=== PATIENT | female | born 1930 | race Caucasian/White ===

== ENCOUNTER 2018-01-02 19:41 | Inpatient (IN) | payer OTHER ==
[~2018-01-02] VITALS: Ht 157.5 cm; Wt 71.7 kg
[2018-01-02 19:52] VITALS: BP_SYST 163
--- NOTE | 2018-01-02 20:24 | NUR ---
Patient to ER bed 6 to gown for evaluation. Side rails up.
--- NOTE | 2018-01-02 20:30 | NUR ---
Pt AAOx4 presents to ED c/o 02/08 R hip pain s/p trip and fall today. Pt normally can ambulate, but has not been able to walk. Pain exacerbated upon movement. Shortening to R leg noted. No other injuries/complaints per pt/noted. Will continue to monitor.
--- NOTE | 2018-01-02 20:59 | NUR ---
ER Dr. Harding at bedside examining patient.
[2018-01-02] MEDS ORDERED: ONDANSETRON HCL 4 MG/2 ML VIAL IVP ONE (21:15)
[2018-01-02] MEDS ORDERED: MORPHINE 4 MG/ML INJ. SYRINGE IVP ONE ×2 (21:15→23:00)
--- NOTE | 2018-01-02 21:30 | NUR ---
Radiology at bedside for CXR. Pt tolerated well
[2018-01-02 21:46] LABS: BASOPHILS # (AUTO) 0.1 K/uL (0.0-0.2); EOSINOPHILS # (AUTO) 0.2 K/uL (0.0-0.4); MONOCYTES # (AUTO) 0.7 K/uL (0.0-1.0); RED BLOOD CELL COUNT(AUTO) 4.28 MIL/uL (4.2-6.2)
[2018-01-02 21:52] LABS: BASOPHILS % (AUTO) 0.6 % (0.0-2.0); EOSINOPHILS % (AUTO) 1.3 % (0.0-4.0); HEMATOCRIT 37.6 % (36-48); HEMOGLOBIN 12.6 g/dL (12.0-16.0); MEAN CORPUSCULAR HEMOGLOBIN 30 pg (27-31); MEAN CORPUSCULAR HGB CONC 34 % (32-36); MEAN CORPUSCULAR VOLUME 88 fL (79.0-98.0); MONOCYTES % (AUTO) 5.8 % (1.7-9.3); NEUTROPHILS # (AUTO) 8.8 K/uL (1.8-7.7); NEUTROPHILS % (AUTO) 75.3 % (40.0-70.0); PLATELET COUNT (AUTO) 258 K/uL (130-430); RED CELL DISTRIBUTION WIDTH 13.8 % (9.0-15.0); WHITE BLOOD COUNT (AUTO) 11.8 K/uL (4.8-10.8)
[2018-01-02 22:12] LABS: ANION GAP 6 (5-15); CALCIUM 9.8 mg/dL (8.4-11.0); CHLORIDE 107 mmol/L (98-107); CREATININE 1.28 mg/dL (0.55-1.30); GLUCOSE 109 mg/dL (70-99); POTASSIUM 4.5 mmol/L (3.5-5.1); SODIUM SERUM 139 mmol/L (136-145); UREA NITROGEN, BLOOD 30 mg/dL (8-21)
--- NOTE | 2018-01-02 22:13 | NUR ---
# 16 FR Saha catheter with use of sterile technique. Immediate return of 60 cc yellow urine noted. Bedside drainage bag placed below level of bladder. Urine sample collected and sent to lab. Pt tolerated procedure well.
[2018-01-02 22:15] LABS: PROTHROMBIN TIME 10.3 SECS (9.5-12.5)
[2018-01-02 22:17] LABS: ALANINE AMINOTRANSFERASE 25 U/L (12-78); ALBUMIN 3.1 g/dL (3.4-4.8); ASPARTATE AMINOTRANSFERASE 20 U/L (10-37); TOTAL BILIRUBIN 0.4 mg/dL (0.0-1.0)
[2018-01-02 22:18] LABS: BILIRUBIN,URINE NEGATIVE (NEGATIVE); CLARITY/URINE SL HAZY (CLEAR); COLOR,URINE YELLOW (YELLOW); GLUCOSE,URINE NEGATIVE (NEGATIVE); KETONES,URINE NEGATIVE (NEGATIVE); LEUKOCYTE ESTERASE ,URINE NEGATIVE (NEGATIVE); NITRITE, URINE NEGATIVE (NEGATIVE); PROTEIN URINE TRACE (NEGATIVE); UROBILINOGEN,URINE 0.2 (0.2-1.0)
[2018-01-02 22:21] LABS: BLOOD, URINE TRACE (NEGATIVE)
--- NOTE | 2018-01-02 22:37 | NUR ---
Pt states she is full code
[2018-01-02 22:38] LABS: BACTERIA,URINE MANY /HPF (None Seen); WBC,URINE 0-3 /HPF (0-3)
[2018-01-02] MEDS ORDERED: MORPHINE 4 MG/ML INJ. SYRINGE ONE (22:58)
--- NOTE | 2018-01-02 23:00 | NUR ---
Pt reports 8/10 pain to R hip. Verbal order of 4mg Morphine IVP per Dr. Harding.
--- NOTE | 2018-01-02 23:10 | NUR ---
Pt reports pain at IV site, swelling to IV site noted. IV DCed. Attempted IV insertion x2, unable to advance catheter. Dr. Harding notified. Order changed to Morphine IM.
[2018-01-02] MEDS ORDERED: MORPHINE 4 MG/ML INJ. SYRINGE IM ONE (23:30)
--- NOTE | 2018-01-02 23:30 | NUR ---
# 24 gauge angiocath placed to R hand. Use of asceptic technique. Opsite placed over site. Blood return noted. Flushed with 10 cc of normal saline. No evidence of infiltration noted. Patient tolerated well.
--- NOTE | 2018-01-02 23:32 | NUR ---
Morphine 4mg IVP administered. Morphine 4mg IM canceled, morphine wasted. ALYSE sheets.
--- NOTE | 2018-01-02 23:51 | NUR ---
ADMIT NOTE Received pt from ER to the floor with a diagnosis of RIGHT HIP FRACTURE. Admission process initiated. patient oriented to pain management, safety and call light-teach back done.
[2018-01-02 23:55] VITALS: BP_SYST 139
[2018-01-02] MEDS ORDERED: LEVO100T9 PO (23:56)
[2018-01-02] MEDS ORDERED: GLUXR500 PO (23:56)
[2018-01-02] MEDS ORDERED: LIP40 PO (23:56)
--- NOTE | 2018-01-02 23:58 | NUR ---
Patient will be admitted to care of [facility]. Admitted to Medsurg unit. Will go to room 124A. Belongings list completed. Summary report printed. Report will be given at bedside. Addendum: 01/03/18 at 0024 by SDEDEJ Patient will be admitted to care [facility]. Admitted to Medsurg unit. Will go to room 135. Summary report printed. Report will be given at bedside.
[2018-01-03] VITALS: BP_SYST 164
--- NOTE | 2018-01-03 00:28 | NUR ---
INITIAL NOTE Patient transfer to room 121 A. No acute distress. AAO x 4. Stated that right hip pain 4/10. Morphine helped to lower the pain level. Skin warm and dry to touch. SL intact to left hand, no redness, no swelling, patent. Family at bed side. Discussed the safety issue, use call light when need help, and plan of care, verbally understanding. F/C intact, drain gravity with yellow urine. Family will bring belonging home. Safety measure maintained. Bed locked in low position, side rails up, bed alarm on. Call light within reached. Will continue to monitor.
[2018-01-03] MEDS ORDERED: ONDANSETRON HCL 4 MG/2 ML VIAL IVP PRN ×2 (00:45→15:15)
[2018-01-03] MEDS ORDERED: INSULIN REGULAR, HUMAN 100 UNITS/ML, 10 ML VIAL (novoLIN R) SUBCUT PRN ×2 (00:45→10:15)
[2018-01-03] MEDS ORDERED: ACETAMINOPHEN 325 MG TABLET PO PRN (00:45)
[2018-01-03] MEDS ORDERED: ALBUTEROL SULFATE 0.083% 2.5 MG/3 ML VIAL.NEB INH PRN (00:45)
[2018-01-03] MEDS ORDERED: HYDROcodone/ACETAMIN 5-325 MG TAB (NORCO/ VICODIN) PO PRN ×2 (00:45→15:15)
[2018-01-03] MEDS: NACL 0.9% 1,000 ML IV SCH ×2 (01:05→18:46)
[2018-01-03 01:19] VITALS: BP_SYST 163
--- NOTE | 2018-01-03 01:26 | NUR ---
start new iv site to right ac-good blood return, done aseptically. pt tolerate well. Addendum: 01/03/18 at 0127 by Jose Barrow RN gauge 20 angiocath was use.
--- NOTE | 2018-01-03 02:19 | NUR ---
CONSULT Cardio consult for Dr. Pat was called. [phone] RE pre op clearance SW Oil Boiler 22 (Arline)
--- NOTE | 2018-01-03 02:47 | NUR ---
ROUND Patient resting on the bed with eyes closed. No acute distress. IV intact, IVF infusing well. Safety measure maintained. Bed in low position, side rails up, bed alarm on. Call light within reached. Continue to monitor.
--- NOTE | 2018-01-03 03:58 | NUR ---
DR. CAVAZOS IN THE UNIT AND UPDATED THE PATIENT MEDICAL CONDITION.
--- NOTE | 2018-01-03 04:25 | NUR ---
ORTHO CONSULT Consult for Dr. Leiva was called; Dr. Fonseca is honeycomb blanket maker [phone] RE Hip fracture LEEANNE Ibanez
[2018-01-03] MEDS: MORPHINE 2 MG/ML INJ. SYRINGE IVP PRN (05:08)
--- NOTE | 2018-01-03 05:09 | NUR ---
MORPHINE GIVEN Patient c/o right hip pain 12/09, Morphine 2mg IVP given as ordered. No acute distress. IV intact, IVF infusing well. Safety measure maintained. Bed locked in low position, side rails up, bed alarm on. Call light within reached. Continue to monitor.
[2018-01-03 05:12] VITALS: BP_SYST 151
[2018-01-03 06:19] LABS: BASOPHILS # (AUTO) 0.1 K/uL (0.0-0.2); BASOPHILS % (AUTO) 0.5 % (0.0-2.0); EOSINOPHILS # (AUTO) 0.1 K/uL (0.0-0.4); EOSINOPHILS % (AUTO) 0.5 % (0.0-4.0); HEMOGLOBIN 12.8 g/dL (12.0-16.0); LYMPHOCYTES # (AUTO) 2.5 K/uL (1.0-5.5); LYMPHOCYTES % (AUTO) 19.1 % (20.5-51.5); MEAN CORPUSCULAR HEMOGLOBIN 30 pg (27-31); MEAN CORPUSCULAR HGB CONC 34 % (32-36); MONOCYTES # (AUTO) 0.9 K/uL (0.0-1.0); MONOCYTES % (AUTO) 7.3 % (1.7-9.3); NEUTROPHILS # (AUTO) 9.4 K/uL (1.8-7.7); NEUTROPHILS % (AUTO) 72.6 % (40.0-70.0); PLATELET COUNT (AUTO) 209 K/uL (130-430); RED BLOOD CELL COUNT(AUTO) 4.22 MIL/uL (4.2-6.2); WHITE BLOOD COUNT (AUTO) 12.9 K/uL (4.8-10.8)
--- NOTE | 2018-01-03 06:50 | NUR ---
CLOSING NOTE Patient resting on the bed. No acute distress. Pain tolerable at this time. Per patient if not moving the pain is okay for her. Skin warm and dry to touch. SL intact to left hand, no redness, no swelling, patent. IV intact to RAC, no redness, no swelling, no drainage. ON NS at 55ml/hr, infusing well. F/C intact, drain gravity with yellow urine. All needs met. Hourly rounding during shift. Safety measure maintained. Bed locked in low position, side rails up, bed alarm on. Call light within reached. Will endorse to morning shift nurse.
--- NOTE | 2018-01-03 06:52 | NUR ---
PATIENT KEPT NPO SINCE ADMISSION
[2018-01-03 06:54] LABS: ALANINE AMINOTRANSFERASE 24 U/L (12-78); ALBUMIN 2.8 g/dL (3.4-4.8); ANION GAP 6 (5-15); ASPARTATE AMINOTRANSFERASE 19 U/L (10-37); CALCIUM 9.7 mg/dL (8.4-11.0); CHLORIDE 106 mmol/L (98-107); CREATININE 1.18 mg/dL (0.55-1.30); GLUCOSE 144 mg/dL (70-99); POTASSIUM 4.5 mmol/L (3.5-5.1); SODIUM SERUM 138 mmol/L (136-145); TOTAL BILIRUBIN 0.5 mg/dL (0.0-1.0); UREA NITROGEN, BLOOD 27 mg/dL (8-21)
[2018-01-03 07:01] LABS: MEAN CORPUSCULAR VOLUME 90 fL (79.0-98.0)
--- NOTE | 2018-01-03 07:43 | NUR ---
RECEIVED THE CALL FROM DR. FARFAN YANNI Per Dr. Farfan ( covering for Dr. Leiva) to keep patient NPO, will do surgery today after pre op clearance. Dr. Pat already called and waited to call back. Endorse to morning shift nurse Kaley.
--- NOTE | 2018-01-03 07:50 | NUR ---
ENDORSE TO MORNING SHIFT NURSE TO CALL DR. FARFAN AFTER PER OP AUTUMN BY DR. WEST.
--- NOTE | 2018-01-03 07:55 | NUR ---
am rounds: patient lying on the bed,awake,alert and oriented x4. daughter at the bedside. bedside report given by night nurse aurora. neuro lopez with in normal limit. call light with in reach. bed locked at lowest position. continue to monitor.needs attended to.
--- NOTE | 2018-01-03 08:20 | NUR ---
bucks traction: bucks traction applied to right lower leg with sand bag wt 5lbs and bilateral plexi pulse on both feet as ordered.
[2018-01-03 08:44] VITALS: BP_SYST 140
[2018-01-03] MEDS: LEVOTHYROXINE SODIUM 0.1 MG TABLET PO SCH (09:00)
[2018-01-03] MEDS: ATORVASTATIN 20 MG TABLET PO SCH (09:00)
--- NOTE | 2018-01-03 10:05 | NUR ---
Dr. Bi butt.
--- NOTE | 2018-01-03 10:10 | NUR ---
Nutrition Update Mau Scale 16 noted. Pt admitted for R hip fracture. Diet: NPO + cardiac (2 active, separate diet orders) BMI: 29.1 kg/m2 RD to follow per nutrition care standards.
[2018-01-03] MEDS ORDERED: DEXTROSE 50% JECT 50 ML DISP.SYRIN IVP PRN (10:15)
--- NOTE | 2018-01-03 10:30 | NUR ---
cardio rounds: patient seen by dr hernandez ,stated patient cleared medically,moderate risk,otherwise okay for surgery.
--- NOTE | 2018-01-03 12:41 | NUR ---
BLOOD SUGAR: BLOOD SUGAR TAKEN,NO INSULIN COVERAGE PER SLIDING SCALE.
--- NOTE | 2018-01-03 12:43 | NUR ---
OR: TO OR PER RACHEL IN STABLE CONDITION. .PREOP CHECK LIST DONE. CHG BATH RENDERED.MU[place] PASS DONE. FAMILY WILL WAIT AT THE WAITING ROOM.
[2018-01-03 12:56] VITALS: BP_SYST 136
[2018-01-03] MEDS ORDERED: POLYMYXIN 500,000/BACIT.10,000 UNITS in NS IRR 1 L IR ONE (13:05)
--- NOTE | 2018-01-03 14:30 | NUR ---
rn rounds: patient still in or.
[2018-01-03] MEDS ORDERED: LR 1,000 ML IV SCH (14:31)
[2018-01-03] MEDS ORDERED: MORPHINE 4 MG/ML INJ. SYRINGE IVP PRN ×3 (14:45)
[2018-01-03] MEDS ORDERED: METOCLOPRAMIDE HCL 10 MG/2 ML VIAL IVP PRN (14:45)
[2018-01-03] MEDS ORDERED: HYDROcodone/ACETAMIN 10-325 MG TAB PO PRN (15:15)
[2018-01-03] MEDS ORDERED: DIPHENHYDRAMINE HCL 25 MG CAPSULE PO PRN (15:15)
[2018-01-03] MEDS ORDERED: ACETAMINOPHEN 500 MG TABLET PO PRN (15:15)
[2018-01-03] MEDS ORDERED: MILK OF MAGNESIA 30 ML UDC PO PRN (15:15)
[2018-01-03] MEDS ORDERED: DIPHENHYDRAMINE INJ 50 MG/ML VIAL IVP PRN (15:15)
[2018-01-03] MEDS ORDERED: MORPHINE 4 MG/ML INJ. SYRINGE ONE (16:03)
--- NOTE | 2018-01-03 16:06 | NUR ---
rn rounds: patient still in or.
--- NOTE | 2018-01-03 16:40 | NUR ---
post op notes: patient came from pacu,s/p open reduction,internal fixation right hip with trochanteric nailing.right hip surgical dressing clean and dry,with ice packs underneath.report received from mathew pacu nurse.post op vital signs taken,afebrile and stable. patient awake,alert and oriented x3.daughters at the bedside. white draining to yellow urine. denies any pain this time. able to wiggle right toes and health teachings rendered and patient understands it well.call light with in reach. bed locked at lowest position.
[2018-01-03] MEDS: KETOROLAC TROMETHAMINE 15 MG VIAL IVP SCH ×2 (17:39→23:26)
--- NOTE | 2018-01-03 17:43 | NUR ---
BLOOD SUGAR: BLOOD ZTJOR=579VE/DL,NO INSULIN COVERAGE PER SLIDING SCALE.
--- NOTE | 2018-01-03 18:03 | NUR ---
iv notes: patient's daughter wants iv lr to finished first before changing new ivf,blood sugar is okay ,once tolerated po diet, decreased iv rate to kvo as ordered.
--- NOTE | 2018-01-03 18:05 | NUR ---
incentive spirometry: patient doing incentive spirometry,daughter coaching,patient rendered up to 1500ml evry hour while awake 8-10x ,health teaching given and understands it.
--- NOTE | 2018-01-03 18:30 | NUR ---
end of shift: patient with visitor's at the bedside. call light with in reach. bed locked at lowest position. right hip dressing intact,ice pack on x 30mins and off 30mins as ordered. white draining to yellow urine. no distress. neuro lopez with in normal limit.
--- NOTE | 2018-01-03 19:50 | NUR ---
Opening not Opening note Pt AAOx4. VSS. O2 sat 92% on room air. O2 2L applied via NC PRN. Pt states pain is 2/10 tolerable at this time. R. hip dressing C/D/I. Neurovascular check intact. Pt able to move toes, warm to touch, good cap refill. Shaw plexi pulse in place. R. leg floated on pillow. Pt encouraged to do deep breathing exercises/use of I.S. 10x while awake. Pt verbalized understanding. IVF infusing as ordered. Pt family/friends at bedside. Call light within reach. Will continue to monitor.
[2018-01-03 20:00] VITALS: BP_SYST 124
--- NOTE | 2018-01-03 20:34 | NUR ---
PAGE CALLED FOR DR. CAVAZOS. SPOKE TO SUZY, DIALED [phone].
--- NOTE | 2018-01-03 20:35 | NUR ---
MD communication Pt c/o bloating/gas. Paged and spoke with Dr. Dover and rec'd order for Mylicon 1 tab. Will carry out order.
[2018-01-03] MEDS ORDERED: SIMETHICONE 80 MG TAB.CHEW PO PRN (20:45)
[2018-01-03] MEDS: SENNOSIDES 8.6 MG TABLET PO SCH (21:00)
[2018-01-03] MEDS: D5/0.45 NS 1,000 ML IV SCH (21:11)
--- NOTE | 2018-01-03 21:15 | NUR ---
Rounds Pt awake. Med passed. Pt refused Sen[place]ot at this time. Pt denies pain at this time. IVF infusing R. AC 20G clear, patent. R. hip dressing C/D/I. Ice packs in place. No c/o nausea. Shaw plexi pulses in place. Call light within reach. Will continue to monitor.
--- NOTE | 2018-01-03 23:29 | NUR ---
BS check/Rounds Pt asleep, easily arousable. BS checked 123, no insulin indicated per sliding scale protocol. Pt states pain is ok at this time 06/11. Ice packs in place. IV fluids infusing as ordered. Saha cath to gravity. Neuro check intact. Call light within reach. Will continue to monitor.
[2018-01-04] MEDS: D5/0.45 NS 1,000 ML IV SCH
[2018-01-04 00:08] VITALS: BP_SYST 109
--- NOTE | 2018-01-04 01:20 | NUR ---
Rounds Pt asleep. No s/s distress noted. O2 sat 99% on O2 2L via NC. IV fluids infusing as ordered. Call light within reach. Will continue to monitor.
--- NOTE | 2018-01-04 04:15 | NUR ---
Rounds Pt asleep, easily arousable. VSS, afebrile. Pt denies any pain or R. hip dressing C/D/I. IV fluids infusing as ordered. Neuro checks intact, pt able to wiggle both goes and ankles, warm to touch. Shaw plexipulses in place. Call light within reach. Will continue to monitor.
[2018-01-04 04:19] VITALS: BP_SYST 105
[2018-01-04] MEDS: KETOROLAC TROMETHAMINE 15 MG VIAL IVP SCH (06:36)
--- NOTE | 2018-01-04 06:44 | NUR ---
Closing notes Pt alert, awake. No s/s distress noted. BS checked 127. IVF infusing on R. AC 20G no infiltration noted. Neuro check intact. Shaw plexipulses on. R. hip dressing C/D/I. Pt states pain is ok at this time. Saha cath secured to gravity. Call light within reach. To endorse to am nurse.
[2018-01-04 06:46] LABS: ANION GAP 3 (5-15); CALCIUM 8.4 mg/dL (8.4-11.0); CHLORIDE 104 mmol/L (98-107); CREATININE 1.39 mg/dL (0.55-1.30); GLUCOSE 134 mg/dL (70-99); POTASSIUM 4.5 mmol/L (3.5-5.1); SODIUM SERUM 134 mmol/L (136-145); UREA NITROGEN, BLOOD 26 mg/dL (8-21)
[2018-01-04 06:53] LABS: BASOPHILS % (AUTO) 0.4 % (0.0-2.0); EOSINOPHILS # (AUTO) 0.3 K/uL (0.0-0.4); EOSINOPHILS % (AUTO) 3.3 % (0.0-4.0); HEMATOCRIT 28.1 % (36-48); HEMOGLOBIN 9.3 g/dL (12.0-16.0); LYMPHOCYTES # (AUTO) 1.6 K/uL (1.0-5.5); LYMPHOCYTES % (AUTO) 17.3 % (20.5-51.5); MEAN CORPUSCULAR HEMOGLOBIN 29 pg (27-31); MEAN CORPUSCULAR HGB CONC 33 % (32-36); MEAN CORPUSCULAR VOLUME 88 fL (79.0-98.0); MONOCYTES # (AUTO) 0.7 K/uL (0.0-1.0); MONOCYTES % (AUTO) 7.1 % (1.7-9.3); NEUTROPHILS # (AUTO) 6.8 K/uL (1.8-7.7); NEUTROPHILS % (AUTO) 71.9 % (40.0-70.0); PLATELET COUNT (AUTO) 167 K/uL (130-430); RED BLOOD CELL COUNT(AUTO) 3.19 MIL/uL (4.2-6.2); WHITE BLOOD COUNT (AUTO) 9.4 K/uL (4.8-10.8)
--- NOTE | 2018-01-04 07:25 | NUR ---
Opening Note patient resting in bed, awake and alert, no complaints of pain, breathing unlabored on room air, positioned with HOB elevated, IV site on KVO mode, safety precautions in place, educated patient on use of call light for assistance, verbalized understanding, bedside table and call light left within reach, will be back to check on patient
[2018-01-04] MEDS: PANTOPRAZOLE SODIUM 40 MG TAB PO SCH (08:52)
[2018-01-04] MEDS: ATORVASTATIN 20 MG TABLET PO SCH (08:52)
[2018-01-04] MEDS: ENOXAPARIN SODIUM 40 MG/0.4 ML SYRINGE SUBCUT SCH (08:53)
[2018-01-04] MEDS: LEVOTHYROXINE SODIUM 0.1 MG TABLET PO SCH (08:53)
[2018-01-04] MEDS: ASCORBIC ACID 500 MG TABLET PO SCH ×2 (08:53→20:33)
[2018-01-04] MEDS: MULTIVITAMINS TAB 1 TABLET PO SCH (08:53)
[2018-01-04] MEDS: FERROUS SULFATE 140 MG TABLET.ER PO SCH (08:54)
[2018-01-04 08:59] VITALS: BP_SYST 125
--- NOTE | 2018-01-04 09:02 | NUR ---
Medication Administration patient resting in bed, awake and alert, educated her regarding medications, verbalized understanding, no complaints of pain at this time, neurovascular checks within normal limits, dressing clean dry and in tact, safety precautions in place, bedside table and call light left within reach, room close to station, will be back to check on patient
--- NOTE | 2018-01-04 09:04 | NUR ---
Incentive Spirometer patient was able to demonstrate proper use of IS, educated her on frequency of use, verbalized understanding, left on bedside table within reach
--- NOTE | 2018-01-04 09:15 | NUR ---
dcp. met with patient yesterday. dtr at bedside homer linton. provided snf's [facility] and [facility]. she will check snf.s dc to snf for rehab. patient has fww with a seat. pam luciano rn/cm
[2018-01-04] MEDS: MORPHINE 2 MG/ML INJ. SYRINGE IVP PRN (09:38)
--- NOTE | 2018-01-04 10:17 | NUR ---
Dr. Peacock Rounds/Physical Therapy physical therapy at bedside at this time, medicated patient prior to physical therapy, MD also making rounds, will follow through with MD orders
--- NOTE | 2018-01-04 11:30 | NUR ---
Spoke with Physical Therapist stated that patient is not ready to ambulate with 2 RN and to wait until next PT session to evaluate patient's weight bearing
--- NOTE | 2018-01-04 12:03 | NUR ---
Blood Sugar assessed, no insulin coverage needed per sliding scale, lunch tray at bedside, no complaints of pain at this time, breathing unlabored on room air, IV site saline locked, educated patient on use of call light for assistance, verbalized understanding, safety precautions in place, bedside table and call light left within reach, room close to station, will be back to check on patient
[2018-01-04 12:08] VITALS: BP_SYST 126
--- NOTE | 2018-01-04 14:13 | NUR ---
Dietitian Recommendations * Recommend CCHO diet, Glucerna BID, Sumit BID (oral supplements provide an additional 820 kcal/day and 35 gm protein/day) LP, RD Please refer to Nutrition Assessment for details.
--- NOTE | 2018-01-04 14:21 | NUR ---
Patient with Physical Therapy again at this time, will await PT to update me on patient status, daughter at bedside, neurovascular checks within normal limits, will continue to monitor patient
--- NOTE | 2018-01-04 15:02 | NUR ---
PT NOTES TIME [id number] SECOND SESSION CHARTING WILL BE EXPLAINED IN THIS NURSING NOTE SECTION. 15' THER EX, THER ACT 15' GT 8' , 2PA(2) ASSIST WITH BED MOB AND GAIT TRAINING FROM AIDE. CHART REVIEWED AND CLEARED FOR PT FOR SECOND SESSION BY RN, ALEXI. AGREEABLE TO THERAPY WITH DAUGHTER PRESENT. NO C/O DIZZINESS. PT REPORTS 4/10 PAIN IN R HIP, RN AWARE. PT DISPLAYS MOD A WITH BED, MOD A SIT<>STAND, MAX A X2 WITH FWW FOR GAIT TRAINING. REQUIRES MOD/MAX A FWW MANAGEMENT. REQUIRES MOD A TO BRING PATIENTS FOOT FORWARD. ABLE TO PERFORM LATERAL AND FORWARD STEPS, TOTAL OF 6 FT. PT DISPLAYS FEAR OF FALLING. PT HAS POOR/FAIR SAFETY AWARENESS. PERFORMED BLE THER EX, BLE PROM/AAROM IN ALL APPROPRIATE PLANES. DISCUSSED WITH PRIMARY PT.- EMMETT IRELAND PTA Addendum: 01/05/18 at 1535 by Aaron Vargas PT PHYSICAL THERAPY CO-SIGN The Physical Therapy Progress Notes documented by Sports Marketing Coordinator have been reviewed. Reviewed/Co-Signed by: Aaron Vargas PT Documentation Done by: LUCAS IRELAND PTA
[2018-01-04 16:30] VITALS: BP_SYST 110
--- NOTE | 2018-01-04 17:47 | NUR ---
Blood Sugar assessed was 96, patient shows no symptoms of hypoglycemia at this time, she is resting in bed, HOB elevated, neurovascular checks within normal limits, safety precautions remain in place, room close to station, bedside table and call light left within reach, will continue to monitor patient
--- NOTE | 2018-01-04 18:56 | NUR ---
Closing Note patient resting in bed, HOB elevated, neurovascular checks within normal limits, daughter at bedside, no complaints of pain at this time, breathing unlabored on room air, room close to station, safety precautions remain in place, room close to station, bedside table and dary light left within reach, will endorse to scene shifter nurse
--- NOTE | 2018-01-04 19:30 | NUR ---
Initial Notes Received handoff report from offgoing nurse at the bedside. Patient is awake and alert, resting comfortably in bed. No SOB, no acute distress, no complaints of pain at this time. Bed is locked, in the lowest position, 2x side rails up, bed alarm is on. Dunia (Daughter) [phone] at the bedside, and provided number to call if needed. Call light within reach. Encouraged patient to call for assistance.
[2018-01-04 20:00] VITALS: BP_SYST 129
[2018-01-04] MEDS: SENNOSIDES 8.6 MG TABLET PO SCH (20:33)
--- NOTE | 2018-01-04 22:32 | NUR ---
Patient is asleep, resting comfortably in bed. No SOB, no acute distress, no signs of pain or facial grimacing. Breathing even and unlabored with visible chest rise and fall. Call light within reach.
--- NOTE | 2018-01-04 23:31 | NUR ---
Patient is awake and alert, resting comfortably in bed. No SOB, no acute distress, no complaints of pain at this time. IV site is intact, dressing clean and dry, saline locked. Bed is locked, in the lowest position, 2x side rails up. bed alarm is on. Call light is within reach.
[2018-01-05 00:24] VITALS: BP_SYST 137
--- NOTE | 2018-01-05 02:38 | NUR ---
Patient is awake and alert, resting comfortably in bed. No SOB, no acute distress, no complaints of pain at this time. Assisted patient to reposition into a comfortably position. Call light within reach. Encouraged patient to call.
--- NOTE | 2018-01-05 04:28 | NUR ---
Patient is asleep, resting comfortably in bed. No SOB, no acute distress, no signs of pain or facial grimacing. Breathing is even and unlabored with visible chest rise and fall noted. IV site is intact, dressing clean and dry, saline locked. Call light is within reach.
--- NOTE | 2018-01-05 06:41 | NUR ---
D/C white catheter per MD order for 2nd day post op. Patient tolerated procedure well.
[2018-01-05] MEDS ORDERED: LEVOTHYROXINE SODIUM 0.1 MG TABLET PO SCH (07:00)
--- NOTE | 2018-01-05 07:14 | NUR ---
Closing Notes Handoff report given to oncoming dayshift nurse at the bedside. Patient is awake and alert, resting comfortably in bed. No SOB, no acute distress, no complaints if pain at this time. Bed is locked, in the lowest position, 2x side rails up, bed alarm is on. Call light is within reach. Fall and safety precautions maintained. All needs have been met during this shift.
--- NOTE | 2018-01-05 07:20 | NUR ---
Opening Note patient resting in bed, awake and alert, neurovascular checks within normal limits, no complaints of pain at this time, breathing unlabored on room air, IV site saline locked, educated patient on use of call light for assistance, verbalized understanding, call light and bedside table left within reach, room close to station, will continue to monitor
--- NOTE | 2018-01-05 07:30 | NUR ---
Dressing Change with Dr. Isbell at this time, stated site looks good, new dressing placed by , he stated to continue physical therapy, patient tolerated procedure well, safety precautions remain in place, will continue to monitor patient
[2018-01-05 07:38] VITALS: BP_SYST 136
[2018-01-05] MEDS: FERROUS SULFATE 140 MG TABLET.ER PO SCH (08:44)
[2018-01-05] MEDS: ATORVASTATIN 20 MG TABLET PO SCH (08:44)
[2018-01-05] MEDS: PANTOPRAZOLE SODIUM 40 MG TAB PO SCH (08:45)
[2018-01-05] MEDS: MULTIVITAMINS TAB 1 TABLET PO SCH (08:45)
[2018-01-05] MEDS: ASCORBIC ACID 500 MG TABLET PO SCH (08:45)
[2018-01-05] MEDS: ENOXAPARIN SODIUM 40 MG/0.4 ML SYRINGE SUBCUT SCH (08:46)
--- NOTE | 2018-01-05 08:59 | NUR ---
Medication Administration Patient resting in bed, awake and alert, no complaints of pain, educated her regarding medications, verbalized understanding, IV site patent on right arm, safety precautions remain in place, room close to station, educated patient on use of call light for assistance, bedside table and call light left within reach, will continue to monitor patient
[2018-01-05 09:01] VITALS: BP_SYST 136
--- NOTE | 2018-01-05 09:19 | NUR ---
DCP. DC TO SNF WHEN CLEARED BY DR URIBE AND DR FARFAN. [facility] RM 8 B / T [phone]. LEFT A MESSAGE TO DUARTE GARNICA AT [phone]. [facility] ARRANGED FOR A WILL CALL. FRANSISCO SIMPSON RN/CM T [phone]
--- NOTE | 2018-01-05 09:45 | NUR ---
Dr. Madonna Rhodes at this time, will follow through with MD tim
--- NOTE | 2018-01-05 09:50 | NUR ---
Patient Voided After Saha DC tolerated well, no complaints of pain, will continue to monitor
--- NOTE | 2018-01-05 10:15 | NUR ---
Attempted to Call Ally NAVARRO regarding daughter Dunia's request for patient to be transferred to [facility], will await call back Addendum: 01/05/18 at 1040 by Marah Ram RN Spoke with Ally at this time, stated that patient cannot be transferred to [facility] because it is acute rehab and patient needs SNF placement, will speak to daughter and let her know
[2018-01-05] MEDS: MORPHINE 2 MG/ML INJ. SYRINGE IVP PRN (10:45)
--- NOTE | 2018-01-05 11:08 | NUR ---
Spoke with Daughter Christal over the phone, informed her about patient discharge order to SNF, stated she has concerns since she hasn't seen the facility, will await for her call back, also provided Christal with Ally's number to contact her
--- NOTE | 2018-01-05 11:18 | NUR ---
Spoke with Dr. Isbell he stated patient is cleared to be transferred to [facility], have patient follow up with [facility] Addendum: 01/05/18 at 1143 by Marah Ram RN Spoke with Dr. Isbell again to ask when he wants patient to follow-up with him, he stated that patient will not be following up with him and will instead be following up with [facility] orthopedic doctor. Spoke with Ally over the phone and stated that specific orthopedic MD has not been chosen yet and that they are in the process.
--- NOTE | 2018-01-05 12:00 | NUR ---
Blood Sugar Assessed was 126, no insulin coverage needed per sliding scale, patient sitting on chair at bedside, patient was up with physical therapy, no complaints of pain at this time, visitors at bedside, safety precautions remain in place, room close to station, bedside table and call light left within reach, will continue to monitor patient
[2018-01-05 12:20] VITALS: BP_SYST 150
--- NOTE | 2018-01-05 14:08 | NUR ---
Patient Assisted on Bedpan at this time, tolerated well, no complaints of pain, no signs of skin breakdown, dressing is clean dry and in tact, safety precautions in place, room close to station, will continue to monitor
--- NOTE | 2018-01-05 15:22 | NUR ---
PHYSICAL THERAPY CO-SIGN The Physical Therapy Progress Notes documented by Nurse Research have been reviewed. Reviewed/Co-Signed by: Aaron Vargas PT Documentation Done by: GARCIA GIL NOTE TAKER I CONCUR WITH NOTE TAKER TX TO BOTH SESSIONS NEEDS TACTILE CUES TO ADVANCE LE DUE TO WEAKNESS. Addendum: 01/05/18 at 1530 by Aaron Vargas PT Amended: Links added.
--- NOTE | 2018-01-05 15:52 | NUR ---
DCP. SPOKE WITH DTEdgardo RAMACHANDRAN, AT [phone]. SHE REFUSED [facility]. SHE WANTS PT TO DC TO [facility]UTE [facility]. [facility], [facility]. [facility] NO BED. EXPLAINED TO HER, DC ONLY TO CONTRACTED SNF.[facility] RM 110 A . [facility] ARRANGED FOR A WILL CALL. [phone].
--- NOTE | 2018-01-05 15:58 | NUR ---
[facility] T [phone]
--- NOTE | 2018-01-05 16:15 | NUR ---
Assisted to Void on bedpan at this time, patient tolerated well, she was pulled up in bed, no signs of distress, safety precautions in place, room close to station, will continue to monitor patient
[2018-01-05 16:24] VITALS: BP_SYST 153
--- NOTE | 2018-01-05 16:24 | NUR ---
ARRANGED WITH [facility] TO TAKE PT TO [facility], RM 110 A. TECHNOLOGY RECRUITER TIME IS 1730. SPOKE TO MARY.
[2018-01-05 16:42] VITALS: BP_SYST 153
--- NOTE | 2018-01-05 17:36 | NUR ---
[facility] CALLED RE: TO INFORM US OF A 60 MINUTES DELAY TO GET THE PT. INSTEAD OF 1730 THE NEW TIME I [phone] ([phone])
--- NOTE | 2018-01-05 18:27 | NUR ---
Blood Sugar Assessed slightly elevated, patient ate fruit cup at this time, stated she does not want dinner, no complaints of pain at this time, breathing unlabored and equal, symmetrical chest expansion, safety precautions remain in place, room close to station, bedside table and call light left within reach, will continue to monitor patient
--- NOTE | 2018-01-05 19:23 | NUR ---
PT TRANSFERRED Report given to [facility]. Transfer packet with Transfer Orders and Medication Reconciliation form given to EMT with report. Exitcare provided. [facility] ID band removed, replaced with ID band with pt's name and . IV catheter removed, intact and dressing applied, no active bleeding. All belongings sent with patient. Patient left floor via gurney escorted by EMT in no distress.
== END 2018-01-05 19:23 | DRG 482 ==
LOC: SED 19:41 → SMU 22:33
PROVIDERS: ADMIT Internal Medicine; ATTEND Internal Medicine
PROC: 0QS634Z Reposition Right Upper Femur with Internal Fixation Device, Percutaneous Approach (ICD-10-PCS; principal; 2018-01-03 12:30)
DX: S72.141A Displaced intertrochanteric fracture of right femur, initial encounter for closed fracture (principal); E11.9 Type 2 diabetes mellitus without complications; E03.9 Hypothyroidism, unspecified; E86.0 Dehydration; I10 Essential (primary) hypertension; M19.90 Unspecified osteoarthritis, unspecified site; G40.909 Epilepsy, unspecified, not intractable, without status epilepticus; I27.20 Pulmonary hypertension, unspecified; E78.5 Hyperlipidemia, unspecified; W01.0XXA Fall on same level from slipping, tripping and stumbling without subsequent striking against object, initial encounter; Y92.89 Other specified places as the place of occurrence of the external cause; Y99.8 Other external cause status; Y93.89 Activity, other specified; Z85.820 Personal history of malignant melanoma of skin; Z83.3 Family history of diabetes mellitus
CPT/HCPCS: 36415; 71045; 73502; 76000; 80048; 80053; 81000-TC; 82962; 84484; 85025; 85610-TC; 85730-TC; 86886; 86900; 86901; 87081; 87086; 93005; 93306; 96374; 96375; 96376; 97110-GP; 97116-GP; 97530-GP; 99285; C1713; C1769; J1650; J1815; J1885; J2270; J2405; J7030